=== PATIENT | male | born 1960 | race Caucasian/White ===

== ENCOUNTER 2017-11-21 13:25 | Observation (INO) | payer BC ==
[2017-11-21] MEDS ORDERED: Iopamidol 755 Mg/ML 100 ML Bottle IVPUSH ONE (13:31)
[2017-11-21] MEDS ORDERED: Temazepam 15 MG Cap PO PRN (17:39)
[2017-11-21] MEDS ORDERED: Sodium Chloride 0.9% 10 ML Syringe FLUSH PRN (17:39)
[2017-11-21] MEDS ORDERED: Magnesium Hydroxide 400 MG/5 ML Susp 30 ML Cup PO PRN (17:39)
[2017-11-21] MEDS ORDERED: Acetaminophen 325 MG Tab PO PRN (17:39)
--- NOTE | 2017-11-21 17:53 | PCM.HP ---
H&P History of Present Illness - General Date of Service: 11/21/17 Admit Problem/Dx: Admission Diagnosis/Problem Admission Diagnosis/Problem Pulmonary embolism Source of Information: Patient History Limitations: Reports: No Limitations - History of Present Illness Initial Comments - Free Text/Narative: aMria Guadalupe is a 56 year old male with PMH significant for hypertension, hyperlipidemia, atrial fibrillation, and BPH, who is admitted to the hospital for bilateral pulmonary emboli. He was seen in the clinic by Dr. Daley on Saturday for c/o swelling in BLE, shortness of breath, and fatigue, which had worsened over the past week. He reports he is 5 weeks status post left total hip arthroplasty with Dr. Sena. He reports he had US of BLE, which was negative for DVT. His D-Dimer was elevated to 3.751, so chest CTA was completed, revealing multiple bilateral pulmonary emboli. Pulmonary emboli noted to the lobar and segmental pulmonary arteries of the left lower lobe, right middle lobe , and right lower lobe. He does report a history of atrial fibrillation. 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 He reports he has only been on 325 mg aspirin since then. At present, he reports that he has noticed worsening fatigue due to shortness of breath over the last week or so. He denies any pain in his lower extremities currently, but does feel they are still slightly more swollen than usual. He denies any chest pain. He has no additional complaints and reports he otherwise feels well. Review of lab work from [facility] on Saturday11/18/2017 shows normal UA, CMP, Mg, vitamin B12, and folate. Pro-BNP was 461. Symptom Onset Date: 11/16/17 Duration of Symptoms: Reports: Getting Worse Associated Symptoms: Reports: Cough, Shortness of Breath, Other (fatigue, swelling in BLE). Denies: Confusion, Chest Pain, cough w sputum, Diaphoresis, Fever/Chills, Headaches, Loss of Appetite, Malaise, Nausea/Vomiting, Rash, Seizure, Syncope, Weakness - Related Data Allergies/Adverse Reactions: Allergies Allergy/AdvReac Type Severity Reaction Status Date / Time cefdinir [From Omnicef] Allergy Cannot Verified 11/21/17 16:23 Remember Penicillins Allergy Cannot Verified 11/21/17 16:23 Remember Home Medications: Home Meds Ascorbic Acid [Vitamin C] 50 mg PO DAILY 11/21/17 [History] Aspirin 325 mg PO DAILY 11/21/17 [History] Digoxin 250 mcg PO DAILY 11/21/17 [History] Diltiazem HCl [Cardizem LA] 360 mg PO DAILY 11/21/17 [History] Folic Acid 1 mg PO DAILY 11/21/17 [History] Furosemide [Lasix] 40 mg PO DAILY 11/21/17 [History] Losartan [Cozaar] 50 mg PO DAILY 11/21/17 [History] Magnesium Oxide 500 mg PO DAILY 11/21/17 [History] Mirabegron [Myrbetriq] 50 mg PO DAILY 11/21/17 [History] Red Yeast Rice 1 tab PO BEDTIME 11/21/17 [History] Ubidecarenone [Co Q-10] 50 mg PO BEDTIME 11/21/17 [History] Vitamin E 400 units PO DAILY 11/21/17 [History] atorvaSTATin [Lipitor] 80 mg PO BEDTIME 11/21/17 [History] Past Medical History Cardiovascular History: Reports: Afib, High Cholesterol, Hypertension. Denies: Blood Clots/VTE/DVT Genitourinary History: Reports: BPH Musculoskeletal History: Reports: Osteoarthritis Social & Family History - Family History Cardiac: Reports: Blood Clots/VTE/DVT (father) - Tobacco Use Smoking Status *Q: Never Smoker - Caffeine Use Caffeine Use: Reports: Coffee - Living Situation & Occupation Living situation: Reports: Occupation: Employed H&P Review of Systems - Review of Systems: Review Of Systems: ROS reveals no pertinent complaints other than HPI. General: Reports: Fatigue. Denies: Fever, Chills, Weakness Pulmonary: Reports: Shortness of Breath, Cough. Denies: Wheezing, Pleuritic Chest Pain, Sputum, Hemoptysis Cardiovascular: Reports: Dyspnea on Exertion, Edema. Denies: Chest Pain Gastrointestinal: Reports: No Symptoms Genitourinary: Reports: Frequency. Denies: Dysuria, Urgency Musculoskeletal: Reports: Joint Pain Skin: Reports: No Symptoms Psychiatric: Reports: No Symptoms Neurological: Reports: No Symptoms Hematologic/Lymphatic: Reports: No Symptoms Immunologic: Reports: No Symptoms Exam - Exam Exam: See Below - Vital Signs Vital Signs: Last Vital Signs Temp 97.3 F 11/21/17 16:21 Pulse 97 11/21/17 16:21 Resp 18 11/21/17 16:21 BP 131/80 11/21/17 16:21 Pulse Ox 98 11/21/17 16:21 Weight: 298 lb 12.8 oz - Exam Quality Assessment: DVT Prophylaxis General: Alert, Oriented, 4 Neck: Supple, Trachea Midline, 2 Lungs: Clear to Auscultation, Normal Respiratory Effort Cardiovascular: Regular Rate, Irregular Rhythm GI/Abdominal Exam: Normal Bowel Sounds, Soft, Non-Tender, No Organomegaly, No Distention, No Abnormal Bruit, No Mass, Pelvis Stable Back Exam: Normal Inspection, Full Range of Motion, NT Extremities: Normal Range of Motion, Non-Tender, Normal Capillary Refill, Pedal Edema (1+) Peripheral Pulses: 2+: Posterior Tibial (L), Posterior Tibial (R), Dorsalis Pedis (L), Dorsalis Pedis (R) Skin: Warm, Dry, Intact Neurological: Cranial Nerves Intact Neuro Extensive - Mental Status: Alert, Oriented x3, Normal Mood/Affect, Normal Cognition Psychiatric: Alert, Normal Affect, Normal Mood - Problem List (1) Pulmonary embolism, bilateral SNOMED Code(s): 33639748 ICD Code: I26.99 - OTHER PULMONARY EMBOLISM WITHOUT ACUTE COR PULMONALE Status: Acute Priority: High Current Visit: Yes (2) Status post total hip replacement, left SNOMED Code(s): 176302590471, 126611705889 ICD Code: Z96.642 - PRESENCE OF LEFT ARTIFICIAL HIP JOINT Status: Acute Current Visit: Yes (3) Hypertension SNOMED Code(s): 56462941 ICD Code: I10 - ESSENTIAL (PRIMARY) HYPERTENSION Status: Chronic Current Visit: Yes Qualifiers: Hypertension type: essential hypertension Qualified Code(s): I10 - Essential (primary) hypertension (4) Atrial fibrillation SNOMED Code(s): 09287255 ICD Code: I48.91 - UNSPECIFIED ATRIAL FIBRILLATION Status: Chronic Current Visit: Yes Qualifiers: Atrial fibrillation type: chronic Qualified Code(s): I48.2 - Chronic atrial fibrillation Problem List Initiated/Reviewed/Updated: Yes Orders Last 24hrs: Active Orders 24 hr Category Date Time Status Patient Status [ADT] Routine ADT 11/21/17 17:39 Ordered Cardiac Monitoring [RC] CONTINUOUS Care 11/21/17 17:40 Ordered Oxygen Therapy [RC] PRN Care 11/21/17 17:39 Ordered Pulse Oximetry [RC] PRN Care 11/21/17 17:40 Ordered Telemetry Monitoring [Cardiac Monitoring] [RC] 0800, Care 11/21/17 17:07 Active 2000 Up ad Camille [RC] ASDIRECTED Care 11/21/17 17:39 Ordered VTE/DVT Education [RC] PER UNIT ROUTINE Care 11/21/17 17:39 Ordered Vital Signs [RC] Q4H Care 11/21/17 17:39 Ordered Regular Diet [DIET] Diet 11/21/17 Dinner Ordered Ang Chest [CT] Routine Exams 11/21/17 14:30 Taken Echo Comp wo Cont [US] Routine Exams 11/21/17 13:30 Taken BMP [BASIC METABOLIC PANEL,BMP] [CHEM] Routine Lab 11/22/17 06:00 Ordered CBC WITH AUTO DIFF [HEME] AM Lab 11/22/17 05:11 Ordered Acetaminophen [Tylenol] Med 11/21/17 17:39 Ordered 650 mg PO Q4H PRN Digoxin [Lanoxin] Med 11/22/17 08:00 Ordered 250 mcg PO DAILY Diltiazem HCl [Cardizem LA] Med 11/22/17 08:00 Ordered 360 mg PO DAILY Enoxaparin [Lovenox] Med 11/21/17 18:00 Once 130 mg SUBCUT NOW ONE Furosemide [Lasix] Med 11/22/17 08:00 Ordered 40 mg PO DAILY Losartan [Cozaar] Med 11/22/17 08:00 Ordered 50 mg PO DAILY Magnesium Hydroxide [Milk of Magnesia] Med 11/21/17 17:39 Ordered 30 ml PO Q12H PRN Mirabegron [Myrbetriq] Med 11/22/17 08:00 Ordered 50 mg PO DAILY Sodium Chloride 0.9% [Saline Flush] Med 11/21/17 17:39 Ordered 10 ml FLUSH ASDIRECTED PRN Temazepam [Restoril] Med 11/21/17 17:39 Ordered 15 mg PO BEDTIME PRN atorvaSTATin [Lipitor] Med 11/21/17 20:00 Ordered 80 mg PO BEDTIME Saline Lock Insert [OM.PC] Routine Oth 11/21/17 17:39 Ordered Resuscitation Status Routine Resus Stat 11/21/17 17:39 Ordered EKG 12 Lead [EK] Routine Ther 11/21/17 17:39 Ordered Medication Orders Acetaminophen (Tylenol) 650 mg PO Q4H PRN PRN Reason: Pain (Mild 1-3)/fever Enoxaparin Sodium (Lovenox) 130 mg SUBCUT NOW ONE Stop: 11/21/17 18:01 Magnesium Hydroxide (Milk Of Magnesia) 30 ml PO Q12H PRN PRN Reason: Constipation Sodium Chloride (Saline Flush) 10 ml FLUSH ASDIRECTED PRN PRN Reason: Keep Vein Open Temazepam (Restoril) 15 mg PO BEDTIME PRN PRN Reason: Sleep Assessment/Plan Comment:: Long discussion had with patient and regarding options for treatment of pulmonary emboli and jail anticoagulation including Coumadin (bridging with Lovenox), Eliquis, Xarelto, etc. Ultimately, patient requests to be started on Xarelto. This was discussed with pharmacy re: cost. Discussed cost of jail therapy with patient and , who were agreeable and wished to proceed with initiating Xarelto. Xarelto not immediately available this evening. We will dose lovenox 130 mg tonight and initiate Xarelto in the morning. Patient will be on 15 mg BID x 21 days and then 20 mg daily indefinitely given bilateral PE and chronic atrial fibrillation. He had not been previously anticoagulated by his election judge due to low CHADs score. We will stop his full dose aspirin and start Xarelto. I will check kidney function in am, prior to initiating Xarelto. Creatinine 2017 was 1.0. Discussed benefits vs. risks of anticoagulation with patient. Patient voiced understanding and wishes to proceed with Xarelto. Will monitor heart rhythm overnight. Awaiting echocardiogram results. Discussed with patient that since we will not need to wait for INR to be therapeutic, we will admit to observation to monitor cardiac activity overnight and discharge home in 1-2 days, when echocardiogram results are available. Patient and voiced understanding and were agreeable with plan.
[2017-11-21] MEDS ORDERED: Enoxaparin 80 MG/0.8 ML Syringe SUBCUT ONE (18:00)
[2017-11-21] MEDS ORDERED: Enoxaparin 60 MG/0.6 ML Syringe SUBCUT ONE (18:00)
[2017-11-21] MEDS: ATORVASTATIN 80 MG PO SCH (19:36)
[2017-11-21] MEDS ORDERED: atorvaSTATin 20 MG Tab PO SCH (20:00)
[2017-11-22 07:28] LABS: CHLORIDE,CL 104 mEq/L (98-106); SODIUM,NA 138 mEq/L (136-145)
[2017-11-22] MEDS: LOSARTAN 50 MG PO SCH (07:55)
[2017-11-22] MEDS: Furosemide 40 MG Tab PO SCH (07:55)
[2017-11-22] MEDS: TAZTIA XT PO SCH (07:56)
[2017-11-22] MEDS ORDERED: Diltiazem 180 MG Cap.CD PO SCH (08:00)
[2017-11-22] MEDS ORDERED: Non-Formulary Medication 1 Each (Mirabegron [Myrbetriq] 50 MG) PO SCH (08:00)
[2017-11-22] MEDS ORDERED: Losartan 25 MG Tab PO SCH (08:00)
--- NOTE | 2017-11-22 08:49 | PCM.PN ---
- General Info Date of Service: 11/22/17 Admission Dx/Problem (Free Text): Admission Diagnosis/Problem Admission Diagnosis/Problem Pulmonary embolism Functional Status: Reports: Pain Controlled, Tolerating Diet, Ambulating, Urinating. Denies: New Symptoms - Review of Systems General: Reports: Fatigue. Denies: Fever, Weakness HEENT: Reports: No Symptoms Pulmonary: Reports: Cough. Denies: Shortness of Breath, Pleuritic Chest Pain, Sputum, Hemoptysis, Wheezing Cardiovascular: Reports: Dyspnea on Exertion, Orthopnea. Denies: Chest Pain, Edema (improved from yesterday) Gastrointestinal: Reports: No Symptoms. Denies: Abdominal Pain, Constipation, Decreased Appetite, Diarrhea, Nausea, Vomiting Genitourinary: Reports: No Symptoms. Denies: Dysuria, Frequency, Urgency Musculoskeletal: Reports: No Symptoms Skin: Reports: No Symptoms Neurological: Reports: No Symptoms. Denies: Confusion, Dizziness, Headache, Numbness, Tingling, Weakness Psychiatric: Reports: No Symptoms. Denies: Confusion, Depression, Anxiety - Patient Data Vitals - Most Recent: Last Vital Signs Temp 98.9 F 11/22/17 04:00 Pulse 93 11/22/17 04:00 Resp 18 11/22/17 04:00 BP 125/82 11/22/17 04:00 Pulse Ox 97 11/22/17 04:00 Weight - Most Recent: 298 lb 12.8 oz Lab Results Last 24 Hours: Laboratory Results - last 24 hr 11/22/17 11/22/17 Range/Units 07:05 07:05 WBC 9.6 (5.0-10.0) 10^3/uL RBC 4.81 (4.50-6.00) 10^6/uL Hgb 14.1 (14.0-18.0) g/dL Hct 43.5 (40.0-54.0) % MCV 90.4 (82.0-94.0) fL MCH 29.3 (27.0-32.0) pg MCHC 32.4 L (33.0-38.0) g/dL RDW Coeff of Brett 14.6 (11.0-15.0) % Plt Count 293 (150-400) 10^3/uL Neut % (Auto) 62.4 (35-85) % Lymph % (Auto) 23.0 (10-55) % [place] % (Auto) 9.5 (0-16) % Eos % (Auto) 4.6 (0-5) % Baso % (Auto) 0.5 (0-3) % Neut # (Auto) 5.99 (1.80-7.00) 10^3/uL Lymph # (Auto) 2.21 (1.00-4.80) 10^3/uL [place] # (Auto) 0.91 H (0.00-0.80) 10^3/uL Eos # (Auto) 0.44 (0.00-0.45) 10^3/uL Baso # (Auto) 0.05 10^3/uL Sodium 138 (136-145) mEq/L Potassium 4.1 (3.5-5.0) mEq/L Chloride 104 (98-106) mEq/L Carbon Dioxide 27 (21-32) mmol/L BUN 17 (7-18) mg/dL Creatinine 0.9 (0.7-1.3) mg/dL Est Cr Clr Drug Dosing 93.50 mL/min Estimated GFR (MDRD) > 60 (>=60) mL/min Glucose 107 H (75-99) mg/dL Calcium 8.7 (8.4-10.1) mg/dL Med Orders - Current: Current Medications Acetaminophen (Tylenol) 650 mg PO Q4H PRN PRN Reason: Pain (Mild 1-3)/fever Furosemide (Lasix) 40 mg PO DAILY [facility] Last Admin: 11/22/17 07:55 Dose: 40 mg Magnesium Hydroxide (Milk Of Magnesia) 30 ml PO Q12H PRN PRN Reason: Constipation Non-Formulary Medication (Mirabegron [Myrbetriq]) 50 mg PO DAILY [facility] Nf-Taztia Xt 360mg (Own Med) 0 each PO DAILY [facility] Last Admin: 11/22/17 07:56 Dose: 1 each Nf-Atorvastatin 80mg (Own Med) 0 each PO BEDTIME [facility] Last Admin: 11/21/17 19:36 Dose: 1 each Nf-Digoxin 250mcg (TabOwn Med) 0 each PO DAILY@1200 SHRUTHI Nf-Losartan 50mg Tab (Own Med) 0 each PO DAILY [facility] Last Admin: 11/22/17 07:55 Dose: 1 each Ptom Rivaroxaban (15 Mg Tab) 0 each PO Q12H SHRUTHI Sodium Chloride (Saline Flush) 10 ml FLUSH ASDIRECTED PRN PRN Reason: Keep Vein Open Temazepam (Restoril) 15 mg PO BEDTIME PRN PRN Reason: Sleep Last Admin: 11/21/17 21:23 Dose: 15 mg Discontinued Medications Enoxaparin Sodium (Lovenox) 60 mg SUBCUT NOW ONE Stop: 11/21/17 18:01 Last Admin: 11/21/17 18:30 Dose: 60 mg Enoxaparin Sodium (Lovenox) 70 mg SUBCUT NOW ONE Stop: 11/21/17 18:01 Last Admin: 11/21/17 18:30 Dose: 70 mg Iopamidol (Isovue-370 (76%)) 100 ml IVPUSH ONETIME ONE Stop: 11/21/17 13:32 Last Admin: 11/21/17 14:10 Dose: 100 ml - Exam Quality Assessment: No: Supplemental Oxygen General: Alert, Oriented, No Acute Distress Neck: Supple Lungs: Clear to Auscultation, Normal Respiratory Effort Cardiovascular: Regular Rate, Irregular Rhythm GI/Abdominal Exam: Normal Bowel Sounds, Soft, Non-Tender, No Organomegaly, No Distention, No Abnormal Bruit, No Mass, Pelvis Stable Back Exam: Normal Inspection, Full Range of Motion Extremities: Normal Inspection, Normal Range of Motion, Non-Tender, No Pedal Edema, Normal Capillary Refill Peripheral Pulses: 2+: Posterior Tibial (L), Posterior Tibial (R), Dorsalis Pedis (L), Dorsalis Pedis (R) Skin: Warm, Dry, Intact Neurological: No New Focal Deficit Psy/Mental Status: Alert, Normal Affect, Normal Mood - Problem List & Annotations (1) Pulmonary embolism, bilateral SNOMED Code(s): 86481646 Code(s): I26.99 - OTHER PULMONARY EMBOLISM WITHOUT ACUTE COR PULMONALE Status: Acute Priority: High Current Visit: Yes (2) Status post total hip replacement, left SNOMED Code(s): 893980351743, 424100859126 Code(s): Z96.642 - PRESENCE OF LEFT ARTIFICIAL HIP JOINT Status: Acute Current Visit: Yes (3) Hypertension SNOMED Code(s): 76695965 Code(s): I10 - ESSENTIAL (PRIMARY) HYPERTENSION Status: Chronic Current Visit: Yes Qualifiers: Hypertension type: essential hypertension Qualified Code(s): I10 - Essential (primary) hypertension (4) Atrial fibrillation SNOMED Code(s): 81020558 Code(s): I48.91 - UNSPECIFIED ATRIAL FIBRILLATION Status: Chronic Current Visit: Yes Qualifiers: Atrial fibrillation type: chronic Qualified Code(s): I48.2 - Chronic atrial fibrillation - Problem List Review Problem List Initiated/Reviewed/Updated: Yes - My Orders Last 24 Hours: My Active Orders 11/21/17 17:39 Patient Status [ADT] Routine Oxygen Therapy [RC] .PRN Up ad Camille [RC] .PRN Vital Signs [RC] 0000,0400,0800,1200,1600,2000 Acetaminophen [Tylenol] 650 mg PO Q4H PRN Magnesium Hydroxide [Milk of Magnesia] 30 ml PO Q12H PRN Sodium Chloride 0.9% [Saline Flush] 10 ml FLUSH ASDIRECTED PRN Temazepam [Restoril] 15 mg PO BEDTIME PRN Saline Lock Insert [OM.PC] Routine Resuscitation Status Routine 11/21/17 17:40 Pulse Oximetry [RC] .PRN 11/21/17 18:25 NICOLÁS Hose [Antiembolic Hose] [OM.PC] Routine 11/21/17 20:00 Non-Formulary Medication [NF Drug] 0 each PO BEDTIME 11/21/17 Dinner Regular Diet [DIET] 11/22/17 07:05 FACTOR V LEIDEN MUTATION [REF] Routine 11/22/17 08:00 Furosemide [Lasix] 40 mg PO DAILY Mirabegron [Myrbetriq] 50 mg PO DAILY Non-Formulary Medication [NF Drug] 0 each PO DAILY Non-Formulary Medication [NF Drug] 0 each PO DAILY 11/22/17 08:45 Non-Formulary Medication [NF Drug] See Dose Instructions PO Q12H 11/22/17 12:00 Non-Formulary Medication [NF Drug] 0 each PO DAILY@1200 - Plan Plan:: 11/21/2017 Long discussion had with patient and regarding options for treatment of pulmonary emboli and skilled nursing anticoagulation including Coumadin (bridging with Lovenox), Eliquis, Xarelto, etc. Ultimately, patient requests to be started on Xarelto. This was discussed with pharmacy re: cost. Discussed cost of skilled nursing therapy with patient and , who were agreeable and wished to proceed with initiating Xarelto. Xarelto not immediately available this evening. We will dose lovenox 130 mg tonight and initiate Xarelto in the morning. Patient will be on 15 mg BID x 21 days and then 20 mg daily indefinitely given bilateral PE and chronic atrial fibrillation. 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 We will stop his full dose aspirin and start Xarelto. I will check kidney function in am, prior to initiating Xarelto. Creatinine 2017 was 1.0. Discussed benefits vs. risks of anticoagulation with patient. Patient voiced understanding and wishes to proceed with Xarelto. Will monitor heart rhythm overnight. Awaiting echocardiogram results. Discussed with patient that since we will not need to wait for INR to be therapeutic, we will admit to observation to monitor cardiac activity overnight and discharge home in 1-2 days, when echocardiogram results are available. Patient and voiced understanding and were agreeable with plan. 11/22/2017 Start Xarelto this morning. Patient reports he does not have shortness of breath at rest. Has not been up walking much, other than to the bathroom and back to bed. He does continue to have exertional shortness of breath. Echocardiogram shows EF of 55-60%. No concerning findings. Cardiac monitoring has showed a controlled a fib with rate in the 90s since admit. Patient continues to deny any chest pain. Cough is improving. Swelling to BLE has also improved, only trace edema noted. Lab work all stable. We will keep one more night to monitor oxygen sats with activity and heart rhythm. Encourage more activity today with spot O2 checks. Anticipate discharge home in the morning. Patient verbalized understanding. This was discussed with Dr. Brambila, who was agreeable with plan.
[2017-11-22] MEDS: RIVAROXABAN 15 MG PO SCH ×2 (09:14→20:56)
[2017-11-22] MEDS: Folic Acid 1 MG Tab PO SCH (11:02)
[2017-11-22] MEDS ORDERED: DIGOXIN 250 MCG PO SCH (12:00)
[2017-11-22] MEDS ORDERED: Digoxin 250 MCG Tab PO SCH (12:00)
[2017-11-22] MEDS: ATORVASTATIN 80 MG PO SCH (20:56)
[2017-11-23] MEDS: LOSARTAN 50 MG PO SCH (07:59)
[2017-11-23] MEDS: Furosemide 40 MG Tab PO SCH (08:00)
[2017-11-23] MEDS: TAZTIA XT PO SCH (08:01)
[2017-11-23] MEDS: Folic Acid 1 MG Tab PO SCH (08:01)
[2017-11-23] MEDS: RIVAROXABAN 15 MG PO SCH ×2 (08:02→09:16)
--- NOTE | 2017-11-23 09:17 | PCM.DCSUM1 ---
Discharge Summary - Hospital Course HPI Initial Comments: Maria Guadalupe is a 56 year old male who was admitted to the hospital 11/21/2017 for bilateral pulmonary emboli. He was seen in the clinic by Dr. Daley on Saturday for c/o bilateral lower extremity edema, shortness of breath, and fatigue. He is status post 5 weeks L) PATRIA with Dr. Sena . He had a US of BLE which was negative for DVT. Had an elevated D-dimer and subsequent chest CTA revealed multiple bilateral pulmonary emboli of the lobar and segmental pulmonary arteries of left lower lobe, right middle lobe, and right lower lobe. He also has history of atrial fibrillation. Has not been previously anticoagulated. He reports about 6 years ago he was on Coumadin, but this was stopped. He wished not to be started on Coumadin. Xarelto was started. Patient initially received 130 mg Lovenox on evening of admission, Xarelto was then started 11/22/2017. Patient had an uneventful hospital stay. EKG upon admit revealed atrial fibrillation. Telemetry throughout hospitalization was a controlled a-fib. Patient's exertional shortness of breath and swelling to his LE improved throughout stay. On day of discharge, patient denied any complaints. He had been up ambulating in halls without significant SOB or desaturation of O2 sats. He was anxious to discharge home. Patient will be discharged home on Xarelto 15 mg BID x 21 days, then reduced to 20 mg daily following that. He is advised to follow up with his PCP in one week for recheck, sooner if needed. Reduce lasix dose to as needed and stop aspirin. Patient and voiced understanding. Patient discharged home in satisfactory condition. - Discharge Data Discharge Date: 11/23/17 Discharge Disposition: Home, Self-Care 01 Condition: Good - Discharge Diagnosis/Problem(s) (1) Pulmonary embolism, bilateral SNOMED Code(s): 50658833 ICD Code: I26.99 - OTHER PULMONARY EMBOLISM WITHOUT ACUTE COR PULMONALE Status: Acute Priority: High (2) Status post total hip replacement, left SNOMED Code(s): 398923756388, 442912913082 ICD Code: Z96.642 - PRESENCE OF LEFT ARTIFICIAL HIP JOINT Status: Acute (3) Hypertension SNOMED Code(s): 87556018 ICD Code: I10 - ESSENTIAL (PRIMARY) HYPERTENSION Status: Chronic Qualifiers: Hypertension type: essential hypertension Qualified Code(s): I10 - Essential (primary) hypertension (4) Atrial fibrillation SNOMED Code(s): 32007319 ICD Code: I48.91 - UNSPECIFIED ATRIAL FIBRILLATION Status: Chronic Qualifiers: Atrial fibrillation type: chronic Qualified Code(s): I48.2 - Chronic atrial fibrillation - Patient Instructions Diet: Usual Diet as Tolerated Activity: As Tolerated, Cough & Deep Breathe Notify Provider of: Fever, Increased Pain - Discharge Plan *PRESCRIPTION DRUG MONITORING PROGRAM REVIEWED*: Not Applicable *COPY OF PRESCRIPTION DRUG MONITORING REPORT IN PATIENT JONO: Not Applicable Prescriptions/Med Rec: Rivaroxaban [Xarelto] 15 mg PO BID #39 tablet Home Medications: Home Meds Ascorbic Acid [Vitamin C] 50 mg PO DAILY 11/21/17 [History] Digoxin 250 mcg PO DAILY 11/21/17 [History] Diltiazem HCl [Cardizem LA] 360 mg PO DAILY 11/21/17 [History] Folic Acid 1 mg PO DAILY 11/21/17 [History] Losartan [Cozaar] 50 mg PO DAILY 11/21/17 [History] Magnesium Oxide 500 mg PO DAILY 11/21/17 [History] Mirabegron [Myrbetriq] 50 mg PO DAILY 11/21/17 [History] Red Yeast Rice 1 tab PO BEDTIME 11/21/17 [History] Ubidecarenone [Co Q-10] 50 mg PO BEDTIME 11/21/17 [History] Vitamin E 400 units PO DAILY 11/21/17 [History] atorvaSTATin [Lipitor] 80 mg PO BEDTIME 11/21/17 [History] Furosemide [Lasix] 40 mg PO DAILY PRN #0 11/23/17 [Rx] Rivaroxaban [Xarelto] 15 mg PO BID #39 tablet 11/23/17 [Rx] Patient Handouts: Pulmonary Embolism, Atrial Fibrillation, [id number] Referrals: Talisha Andujar NP [ED Midlevel Provider] - - General Info Date of Service: 11/23/17 Admission Dx/Problem (Free Text: Admission Diagnosis/Problem Admission Diagnosis/Problem Pulmonary embolism Subjective Update: Patient reports he is feeling better today. Denies any shortness of breath at rest. Has been up ambulating in halls. Edema has improved in BLE. Denies any pain. Functional Status: Reports: Pain Controlled, Tolerating Diet, Ambulating, Urinating. Denies: New Symptoms - Review of Systems General: Reports: No Symptoms. Denies: Fever, Weakness, Fatigue, Chills HEENT: Reports: No Symptoms Pulmonary: Reports: No Symptoms. Denies: Shortness of Breath, Pleuritic Chest Pain, Cough, Sputum, Hemoptysis, Wheezing Cardiovascular: Reports: Dyspnea on Exertion, Edema. Denies: Chest Pain Gastrointestinal: Reports: No Symptoms Genitourinary: Reports: No Symptoms Musculoskeletal: Reports: No Symptoms Skin: Reports: No Symptoms Neurological: Reports: No Symptoms Psychiatric: Reports: No Symptoms - Patient Data Vitals - Most Recent: Last Vital Signs Temp 99.3 F 11/23/17 00:00 Pulse 85 11/23/17 00:00 Resp 16 11/23/17 00:00 BP 137/86 11/23/17 00:00 Pulse Ox 99 11/23/17 00:00 Weight - Most Recent: 298 lb 12.8 oz Med Orders - Current: Current Medications Acetaminophen (Tylenol) 650 mg PO Q4H PRN PRN Reason: Pain (Mild 1-3)/fever Folic Acid (Folic Acid) 1 mg PO DAILY [facility] Last Admin: 11/23/17 08:01 Dose: 1 mg Furosemide (Lasix) 40 mg PO DAILY [facility] Last Admin: 11/23/17 08:00 Dose: 40 mg Magnesium Hydroxide (Milk Of Magnesia) 30 ml PO Q12H PRN PRN Reason: Constipation Nf-Taztia Xt 360mg (Own Med) 0 each PO DAILY [facility] Last Admin: 11/23/17 08:01 Dose: 1 each Nf-Atorvastatin 80mg (Own Med) 0 each PO BEDTIME [facility] Last Admin: 11/22/17 20:56 Dose: 1 each Nf-Digoxin 250mcg (TabOwn Med) 0 each PO DAILY@1200 [facility] Last Admin: 11/22/17 11:02 Dose: 1 each Nf-Losartan 50mg Tab (Own Med) 0 each PO DAILY [facility] Last Admin: 11/23/17 07:59 Dose: 1 each Ptom Rivaroxaban (15 Mg Tab) 0 each PO Q12H [facility] Last Admin: 11/23/17 09:16 Dose: 1 each Sodium Chloride (Saline Flush) 10 ml FLUSH ASDIRECTED PRN PRN Reason: Keep Vein Open Temazepam (Restoril) 15 mg PO BEDTIME PRN PRN Reason: Sleep Last Admin: 11/21/17 21:23 Dose: 15 mg Discontinued Medications Enoxaparin Sodium (Lovenox) 60 mg SUBCUT NOW ONE Stop: 11/21/17 18:01 Last Admin: 11/21/17 18:30 Dose: 60 mg Enoxaparin Sodium (Lovenox) 70 mg SUBCUT NOW ONE Stop: 11/21/17 18:01 Last Admin: 11/21/17 18:30 Dose: 70 mg Iopamidol (Isovue-370 (76%)) 100 ml IVPUSH ONETIME ONE Stop: 11/21/17 13:32 Last Admin: 11/21/17 14:10 Dose: 100 ml Non-Formulary Medication (Mirabegron [Myrbetriq]) 50 mg PO DAILY SHRUTHI Last Admin: 11/22/17 11:48 Dose: Not Given - Exam Quality Assessment: Reports: DVT Prophylaxis General: Reports: Alert, Oriented Neck: Reports: Supple Lungs: Reports: Clear to Auscultation, Normal Respiratory Effort Cardiovascular: Reports: Regular Rate, Irregular Rhythm GI/Abdominal Exam: Normal Bowel Sounds, Soft, Non-Tender, No Organomegaly, No Distention, No Abnormal Bruit, No Mass, Pelvis Stable Extremities: Normal Inspection, Normal Range of Motion, Non-Tender, Normal Capillary Refill, Pedal Edema (trace) Skin: Reports: Warm, Dry, Intact Neurological: Reports: No New Focal Deficit
== END 2017-11-23 09:45 | disposition home or self-care (01) ==
LOC: CC.US 13:25 → UNDOADMOB 16:11 → INTOOBSV 16:11 → CC.MS 16:11
PROVIDERS: ADMIT General Practice; ATTEND Family Medicine
DX: I26.99 Other pulmonary embolism without acute cor pulmonale (principal); I48.2 Chronic atrial fibrillation; I10 Essential (primary) hypertension; E78.5 Hyperlipidemia, unspecified; Z79.82 Long term (current) use of aspirin; Z79.899 Other long term (current) drug therapy; Z88.0 Allergy status to penicillin; Z88.1 Allergy status to other antibiotic agents; Z96.642 Presence of left artificial hip joint
CPT/HCPCS: 36415; 71275; 80048; 81241; 85025; 93005; 93306; A9270; J1650; Q9967; 96372; G0378

== ENCOUNTER 2020-02-03 05:18 | Emergency (ER) | payer BC ==
[2020-02-03] MEDS: Diltiazem 25 MG/5 ML SDV IVPUSH ONE ×2 (06:15)
[2020-02-03] MEDS ORDERED: Diltiazem 100 MG in Sodium Chloride 0.9% 100 ML IV SCH (06:15)
[2020-02-03] MEDS: Diltiazem 100 MG in Sodium Chloride 0.9% 100 ML IV SCH (06:26)
[2020-02-03] MEDS: Sodium Chloride 0.9% 1,000 ML IV SCH (06:26)
[2020-02-03 06:30] LABS: CHLORIDE,CL 98 mEq/L (98-106); SODIUM,NA 134 mEq/L (136-145)
[2020-02-03] MEDS: Vancomycin/Water for INJ (PEG) 2 GM in Premix Bag 1 BAG IV ONE (06:59)
--- NOTE | 2020-02-03 07:04 | EDM.PDOC ---
ED HPI GENERAL MEDICAL PROBLEM - General Chief Complaint: General Stated Complaint: increased SOB, covid positive Time Seen by Provider: 02/03/20 05:45 Source of Information: Reports: Patient History Limitations: Reports: No Limitations, Respiratory Distress - History of Present Illness INITIAL COMMENTS - FREE TEXT/NARRATIVE: Maria Guadalupe is a 59 yo male who presented to the ED with concerns of increased shortness of breath. States he is positive COVID and started having difficulty with breathing last night around 2100hrs. States wasn't able to sleep d/t a persistent cough. Did try using DuoNebs at home but felt it made it worse and his heart started to race. Has known history of atrial fibrillation. Currently is on Xarelto, Cardizem and Metoprolol for atrial fibrillation but unknown dosage. States he was diagnosed with COVID last week Saturday and was started on Dexamethasone by his primary provider, Dr. Enrique Daley, in [place], [place]. States he gradually got worse thru out the week and was seen by Dr. Daley on Saturday of this week. He states he was started on IV antibiotics but unsure what it was exactly. Had laboratory work and chest x-ray at that time. Has IV in right wrist from outside facility. - Related Data Allergies Allergy/AdvReac Type Severity Reaction Status Date / Time cefdinir [From Omnicef] Allergy Cannot Verified 02/03/20 07:11 Remember Penicillins Allergy Cannot Verified 02/03/20 07:11 Remember Home Meds: Home Meds Ascorbic Acid [Vitamin C] 50 mg PO DAILY 11/21/17 [History] Folic Acid 1 mg PO DAILY 11/21/17 [History] Losartan [Cozaar] 50 mg PO DAILY 11/21/17 [History] Magnesium Oxide 500 mg PO DAILY 11/21/17 [History] Mirabegron [Myrbetriq] 50 mg PO DAILY 11/21/17 [History] Red Yeast Rice 1 tab PO BEDTIME 11/21/17 [History] Ubidecarenone [Co Q-10] 50 mg PO BEDTIME 11/21/17 [History] Vitamin E 400 units PO DAILY 11/21/17 [History] atorvaSTATin [Lipitor] 80 mg PO BEDTIME 11/21/17 [History] dilTIAZem HCL [Cardizem LA] 360 mg PO DAILY 11/21/17 [History] Furosemide [Lasix] 40 mg PO DAILY PRN #0 11/23/17 [Rx] Apixaban [Eliquis] 5 mg PO BID 02/03/20 [History] Evolocumab [Repatha Syringe] 1 syringe IM WEEKLY 02/03/20 [History] Metoprolol Succinate 25 mg PO DAILY 02/03/20 [History] Past Medical History Cardiovascular History: Reports: Afib, High Cholesterol, Hypertension. Denies: Blood Clots/VTE/DVT Respiratory History: Reports: PE Genitourinary History: Reports: BPH Musculoskeletal History: Reports: Osteoarthritis - Past Surgical History GI Surgical History: Reports: Hernia, Abdominal Musculoskeletal Surgical History: Reports: Hip Replacement, Other (See Below) Other Musculoskeletal Surgeries/Procedures:: bilat hip replacements, pin and plate to L) hand Social & Family History - Family History Cardiac: Reports: Blood Clots/VTE/DVT (father) - Tobacco Use Tobacco Use Status *Q: Never Tobacco User - Caffeine Use Caffeine Use: Reports: Coffee - Recreational Drug Use Recreational Drug Use: No - Living Situation & Occupation Living situation: Reports: Occupation: Employed ED ROS GENERAL - Review of Systems Review Of Systems: See Below Constitutional: Reports: Fatigue. Denies: Fever, Chills HEENT: Reports: Throat Pain (persistent cough) Respiratory: Reports: Shortness of Breath, Wheezing, Cough Cardiovascular: Reports: Palpitations. Denies: Edema, Lightheadedness, Syncope GI/Abdominal: Reports: No Symptoms : Reports: No Symptoms Musculoskeletal: Reports: No Symptoms Skin: Reports: No Symptoms ED EXAM, GENERAL - Physical Exam Exam: See Below Exam Limited By: No Limitations General Appearance: Moderate Distress Ears: Normal External Exam, Hearing Grossly Normal Nose: Normal Inspection, No Blood Throat/Mouth: Normal Voice, No Airway Compromise Head: Atraumatic, Normocephalic Neck: Normal Inspection, Supple. No: Lymphadenopathy (L), Lymphadenopathy (R) Respiratory/Chest: Respiratory Distress, Decreased Breath Sounds, Crackles (thr ough out right and left lobs), Accessory Muscle Use, Other (persistent dry, harsh cough). No: Stridor Cardiovascular: No Edema, No Murmur, Irregularly Irregular GI/Abdominal: Normal Bowel Sounds, Soft, Non-Tender, No Distention, Other (morbid obesity) Neurological: Alert, Oriented, Normal Cognition Psychiatric: Anxious Skin Exam: Warm, Dry, Intact, Normal Color, No Rash #1 Interpretation EKG Date: 02/03/20 Time: 05:35 Rhythm: A-Fib (RVR) Comparison: NA - No Prior EKG Course - Vital Signs Last Recorded V/S: Last Vital Signs Temp 99.3 F 02/03/20 06:44 Pulse 154 H 02/03/20 06:44 Resp 43 H 02/03/20 06:44 BP 134/88 02/03/20 06:44 Pulse Ox 84 L 02/03/20 06:44 - Orders/Labs/Meds Orders: Active Orders 24 hr Category Date Time Status Chest 1V Frontal [CR] Routine Exams 02/03/20 Taken Labs: Laboratory Tests 02/03/20 02/03/20 02/03/20 Range/Units 06:01 06:01 06:01 WBC 22.9 H* (5.0-10.0) 10^3/uL RBC 5.97 (4.50-6.00) 10^6/uL Hgb 17.7 (14.0-18.0) g/dL Hct 51.5 (40.0-54.0) % MCV 86.3 (82.0-94.0) fL MCH 29.6 (27.0-32.0) pg MCHC 34.4 (33.0-38.0) g/dL RDW Coeff of Brett 16.4 H (11.0-15.0) % Plt Count 361 (150-400) 10^3/uL Neut % (Auto) 95.0 H (35-85) % Lymph % (Auto) 2.8 L (10-55) % Dawes % (Auto) 2.1 (0-16) % Eos % (Auto) 0 (0-5) % Baso % (Auto) 0.1 (0-3) % Neut # (Auto) 21.73 H (1.80-7.00) 10^3/uL Lymph # (Auto) 0.65 L (1.00-4.80) 10^3/uL Dawes # (Auto) 0.48 (0.00-0.80) 10^3/uL Eos # (Auto) 0.00 (0.00-0.45) 10^3/uL Baso # (Auto) 0.02 10^3/uL D-Dimer, Quantitative 0.99 H (0.00-0.50) Sodium 134 L (136-145) mEq/L Potassium 3.9 (3.5-5.0) mEq/L Chloride 98 (98-106) mEq/L Carbon Dioxide 24 (21-32) mmol/L BUN 25 H (7-18) mg/dL Creatinine 1.2 (0.7-1.3) mg/dL Est Cr Clr Drug Dosing TNP Estimated GFR (MDRD) > 60 (>=60) mL/min Glucose 151 H D (75-99) mg/dL Lactic Acid (0.4-2.0) mmol/L Calcium 8.5 (8.4-10.1) mg/dL Total Bilirubin 0.4 (0.0-1.0) mg/dL AST 35 (15-37) U/L ALT 58 (12-78) U/L Alkaline Phosphatase 84 (46-116) U/L Creatine Kinase 164 (35-232) U/L Troponin I 0.017 (0.00-0.06) ng/mL C-Reactive Protein 15.3 H (0.2-0.8) mg/dL Total Protein 7.1 (6.4-8.2) g/dL Albumin 2.5 L (3.4-5.0) g/dL 02/03/20 Range/Units 06:01 WBC (5.0-10.0) 10^3/uL RBC (4.50-6.00) 10^6/uL Hgb (14.0-18.0) g/dL Hct (40.0-54.0) % MCV (82.0-94.0) fL MCH (27.0-32.0) pg MCHC (33.0-38.0) g/dL RDW Coeff of Brett (11.0-15.0) % Plt Count (150-400) 10^3/uL Neut % (Auto) (35-85) % Lymph % (Auto) (10-55) % Dawes % (Auto) (0-16) % Eos % (Auto) (0-5) % Baso % (Auto) (0-3) % Neut # (Auto) (1.80-7.00) 10^3/uL Lymph # (Auto) (1.00-4.80) 10^3/uL Dawes # (Auto) (0.00-0.80) 10^3/uL Eos # (Auto) (0.00-0.45) 10^3/uL Baso # (Auto) 10^3/uL D-Dimer, Quantitative (0.00-0.50) Sodium (136-145) mEq/L Potassium (3.5-5.0) mEq/L Chloride (98-106) mEq/L Carbon Dioxide (21-32) mmol/L BUN (7-18) mg/dL Creatinine (0.7-1.3) mg/dL Est Cr Clr Drug Dosing Estimated GFR (MDRD) (>=60) mL/min Glucose (75-99) mg/dL Lactic Acid 3.2 H (0.4-2.0) mmol/L Calcium (8.4-10.1) mg/dL Total Bilirubin (0.0-1.0) mg/dL AST (15-37) U/L ALT (12-78) U/L Alkaline Phosphatase (46-116) U/L Creatine Kinase (35-232) U/L Troponin I (0.00-0.06) ng/mL C-Reactive Protein (0.2-0.8) mg/dL Total Protein (6.4-8.2) g/dL Albumin (3.4-5.0) g/dL Meds: Medications Discontinued Medications Generic Name Dose Route Start Last Admin Trade Name Freq PRN Reason Stop Dose Admin Diltiazem HCl 10 mg 02/03/20 05:50 02/03/20 06:15 Diltiazem IVPUSH 02/03/20 05:51 Not Given ONETIME ONE Diltiazem HCl 25 mg 02/03/20 06:00 02/03/20 06:15 Diltiazem IVPUSH 02/03/20 06:01 25 mg ONETIME ONE Administration Diltiazem HCl 100 mg/ Sodium 100 mls @ 5 mls/hr 02/03/20 06:15 02/03/20 06:26 Chloride IV 5 mg/hr TITRATE SHRUTHI 5 mls/hr Administration Protocol 5 MG/HR Diltiazem HCl 100 mg/ Sodium 100 mls @ 5 mls/hr 02/03/20 06:15 Chloride IV TITRATE SHRUTHI Protocol 5 MG/HR Sodium Chloride 1,000 mls @ 125 mls/hr 02/03/20 06:15 02/03/20 06:26 Normal Saline IV 125 mls/hr ASDIRECTED SHRUTHI Administration Vancomycin HCl 2 gm/ Premix 400 mls @ 200 mls/hr 02/03/20 06:45 02/03/20 06:59 IV 02/03/20 08:44 200 mls/hr STAT ONE Administration Departure - Departure Time of Disposition: 07:55 Disposition: DC/Tfer to [facility] 02 Clinical Impression: Acute respiratory distress syndrome (ARDS) due to 2019 novel coronavirus, Atr ial fibrillation with RVR - Discharge Information Referrals: Enrique Daley MD [Primary Care Provider] - Forms: ED Department Discharge Sepsis Event Note (ED) - Evaluation Sepsis Screening Result: No Definite Risk - Focused Exam Vital Signs: Vital Signs Temp Pulse Resp BP Pulse Ox 02/03/20 06:44 99.3 F 154 H 43 H 134/88 84 L 02/03/20 06:17 99.3 F 139 H 48 H 122/97 H 88 L 02/03/20 05:50 98.8 F 84 52 H 148/90 H 84 L 02/03/20 05:20 97.8 F 100 32 H 152/104 H 70 L - Problem List & Annotations (1) Acute respiratory distress syndrome (ARDS) due to 2019 novel coronavirus SNOMED Code(s): 483255730498801900 Code(s): U07.1 - COVID-19; J80 - ACUTE RESPIRATORY DISTRESS SYNDROME Stat us: Acute (2) Pneumonia due to 2019 novel coronavirus SNOMED Code(s): 300426301100791355 Code(s): U07.1 - COVID-19; J12.89 - OTHER VIRAL PNEUMONIA Status: Acute (3) Atrial fibrillation with RVR SNOMED Code(s): 933894029675564 Code(s): I48.91 - UNSPECIFIED ATRIAL FIBRILLATION Status: Acute - My Orders Last 24 Hours: My Active Orders 02/03/20 Chest 1V Frontal [CR] Routine - Assessment/Plan Last 24 Hours: My Active Orders 02/03/20 Chest 1V Frontal [CR] Routine Plan: Upon arrival to ED, Les had an oxygen saturation of low 80's. Immediately patient was placed on nonrebreather and oxygen sats have been maintaining in the mid to high 80's. EKG obtained which did show A. fib with RVR at 176bpm. Consulted with Elizabeth which proceeded to give 25mg of Cardizem IV bolus. Heart rate had slightly decreased to 140's. Elected to start Cardizem drip and titrate, currently on 10mg/hr. Chest x-ray obtained and showed bilateral diffuse infiltrates. [place] [id number] with an elevated CRP and Lactic Acid. E-marv assisted with transfer. Consulted with Dr. Yu, saxophone assembler, at [facility] who kindly accepted transfer. Life flight paged and currently en route with an ETA of 0754. Dr. Yu advised starting IV antibiotics and 2gm of Vancomycin given. Recommended Cefepime as well but was not given secondary to Cephalosporin allergy. Advised intubation prior to flight. Patient's oxygen saturation improved to 87-88% per nonrebreather. Closely monitoring and will refrain intubation until life flight arrival. Upon life flight arrival, Les's oxygen saturation did remain in the 88-90% range. Discussed intubation with patient and elected to try bipap, which he tolerated well. Discussed ris and benefits of transfer with Dejuan. Risks of transfer included worsening of condition, respiratory failure, aircraft crash and . Benefits of transfer included higher level of care facility, critical care monitoring and specialty interventions. Risks of non-transfer included lac of specialized care/treatment/intervention, worsening of condition, . Benefits of non- transfer included staying in familiar environment and close to home. Les verbalized understanding and in agreement with transfer. I did call his and daughter and provided update. Both verbalized understanding. Please see nurses notes for updated documented vitals.
== END 2020-02-03 08:23 ==
LOC: SUPCPDRO 05:18 → CC.ED 05:18
DX: U07.1 COVID-19 (principal); J80 Acute respiratory distress syndrome; I48.91 Unspecified atrial fibrillation; E78.00 Pure hypercholesterolemia, unspecified; I10 Essential (primary) hypertension; Z88.1 Allergy status to other antibiotic agents; Z88.0 Allergy status to penicillin; Z79.01 Long term (current) use of anticoagulants; Z86.711 Personal history of pulmonary embolism; Z79.899 Other long term (current) drug therapy
CPT/HCPCS: 36415; 71045; 80053; 82550; 83605; 84484; 85025; 85379; 86140; 96365; 96366; 96368; 99285; J3370; J3490; J7030; J7050

== ENCOUNTER 2021-04-01 16:34 | Emergency (ER) | payer BC ==
--- NOTE | 2021-04-03 14:12 | EDM.PDOC ---
ED HPI GENERAL MEDICAL PROBLEM - General Chief Complaint: General Stated Complaint: SOB Time Seen by Provider: 04/01/21 16:46 Source of Information: Reports: Patient History Limitations: Reports: No Limitations - History of Present Illness INITIAL COMMENTS - FREE TEXT/NARRATIVE: Pleasant 60 year old male presents with cough and some shortness of breath. He also has a sore throat. He states his was concerned based on his symptoms, especially because of what he went through last year when he had COVID. 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 (see below) (no treatments prior to arrival ) Chest Pain Score (Numeric/FACES): 2 Throat Pain Score (Numeric/FACES): 2 - Related Data Allergies Allergy/AdvReac Type Severity Reaction Status Date / Time cefdinir [From Omnicef] Allergy Cannot Verified 04/01/21 18:25 Remember Penicillins Allergy Cannot Verified 04/01/21 18:25 Remember Home Meds: Home Meds Ascorbic Acid [Vitamin C] 50 mg PO DAILY 11/21/17 [History] Folic Acid 1 mg PO DAILY 11/21/17 [History] Losartan [Cozaar] 50 mg PO DAILY 11/21/17 [History] Magnesium Oxide 500 mg PO DAILY 11/21/17 [History] Mirabegron [Myrbetriq] 50 mg PO DAILY 11/21/17 [History] Red Yeast Rice 1 tab PO BEDTIME 11/21/17 [History] Ubidecarenone [Co Q-10] 50 mg PO BEDTIME 11/21/17 [History] Vitamin E 400 units PO DAILY 11/21/17 [History] atorvaSTATin [Lipitor] 80 mg PO BEDTIME 11/21/17 [History] dilTIAZem HCL [Cardizem LA] 360 mg PO DAILY 11/21/17 [History] Furosemide [Lasix] 40 mg PO DAILY PRN #0 11/23/17 [Rx] Apixaban [Eliquis] 5 mg PO BID 02/03/20 [History] Evolocumab [Repatha Syringe] 1 syringe IM WEEKLY 02/03/20 [History] Metoprolol Succinate 25 mg PO DAILY 02/03/20 [History] Spironolactone [Aldactone] 50 mg PO DAILY 04/01/21 [History] Torsemide 20 mg PO DAILY 04/01/21 [History] Past Medical History HEENT History: Reports: None Cardiovascular History: Reports: Afib, High Cholesterol, Hypertension Respiratory History: Reports: PE Other Respiratory History: Frequent coughing since last . Genitourinary History: Reports: BPH Musculoskeletal History: Reports: Osteoarthritis - Past Surgical History GI Surgical History: Reports: Hernia, Abdominal Musculoskeletal Surgical History: Reports: Hip Replacement, Other (See Below) Other Musculoskeletal Surgeries/Procedures:: bilat hip replacements, pin and plate to L) hand Social & Family History - Family History Cardiac: Reports: Blood Clots/VTE/DVT - Tobacco Use Tobacco Use Status *Q: Never Tobacco User Second Hand Smoke Exposure: No - Caffeine Use Caffeine Use: Reports: Coffee - Recreational Drug Use Recreational Drug Use: No - Living Situation & Occupation Living situation: Reports: Occupation: Employed ED ROS GENERAL - Review of Systems Review Of Systems: See Below Constitutional: Reports: Fever, Chills, Night Sweats HEENT: Reports: Throat Pain Respiratory: Reports: Shortness of Breath, Cough Cardiovascular: Reports: No Symptoms Endocrine: Reports: No Symptoms GI/Abdominal: Reports: No Symptoms : Reports: No Symptoms Musculoskeletal: Reports: No Symptoms Skin: Reports: No Symptoms Neurological: Reports: No Symptoms Psychiatric: Reports: No Symptoms Hematologic/Lymphatic: Reports: No Symptoms Immunologic: Reports: No Symptoms ED EXAM, GENERAL - Physical Exam Exam: See Below Exam Limited By: No Limitations General Appearance: Alert, WD/WN, No Apparent Distress Ears: Normal External Exam Nose: Normal Inspection Throat/Mouth: Normal Inspection Head: Atraumatic, Normocephalic Neck: Normal Inspection Respiratory/Chest: No Respiratory Distress, No Accessory Muscle Use, Chest Non- Tender, Decreased Breath Sounds Cardiovascular: Normal Peripheral Pulses, Regular Rate, Rhythm, No Edema GI/Abdominal: Normal Bowel Sounds Extremities: Normal Inspection, Normal Range of Motion, Non-Tender Neurological: Alert, Oriented, CN II-XII Intact Psychiatric: Normal Affect, Normal Mood Skin Exam: Warm, Dry, Intact Lymphatic: No Adenopathy Course - Vital Signs Last Recorded V/S: Last Vital Signs Temp 37.7 C 04/01/21 16:46 Pulse 65 04/01/21 16:46 Resp 20 04/01/21 16:46 BP 117/69 04/01/21 16:46 Pulse Ox 96 04/01/21 16:46 - Orders/Labs/Meds Orders: chest x ray was unremarkable cbc and d-dimer unremarkable cmp shows potassium elevated at 5.4 COVID was negative influenza was positive Labs: Laboratory Tests 04/01/21 04/01/21 04/01/21 Range/Units 17:30 17:30 17:30 WBC 8.1 (4.0-11.0) 10^3/uL RBC 5.07 (4.50-6.00) x10^6/uL Hgb 15.7 (14.0-18.0) g/dL Hct 48.6 (42.0-52.0) % MCV 95.9 (83.0-97.0) fL MCH 31.0 (27.0-32.0) pg MCHC 32.3 (32.0-36.0) g/dL RDW Coeff of Brett 14.1 (11.0-15.0) % Plt Count 222 (150-400) 10^3/uL Immature Gran % (Auto) 0.2 (0.0-4.9) % Neut % (Auto) 64.7 (41-71) % Lymph % (Auto) 16.8 L (24-44) % [place] % (Auto) 15.4 H (0-10) % Eos % (Auto) 2.3 (0-6) % Baso % (Auto) 0.6 (0-1) % Neut # (Auto) 5.24 (1.80-8.00) x10^3/uL Lymph # (Auto) 1.36 (0.60-5.00) 10^3/uL [place] # (Auto) 1.25 (0.00-1.50) 10^3/uL Eos # (Auto) 0.19 (0.00-1.50) 10^3/uL Baso # (Auto) 0.05 (0.00-0.50) 10^3/uL Immature Gran # (Auto) 0.02 (0.00-0.49) 10^3/uL D-Dimer, Quantitative 0.33 (0.00-0.50) Sodium 138 (136-145) mEq/L Potassium 5.4 H (3.5-5.0) mEq/L Chloride 101 (98-106) mEq/L Carbon Dioxide 27 (21-32) mmol/L BUN 23 H (7-18) mg/dL Creatinine 1.4 H (0.7-1.3) mg/dL Est Cr Clr Drug Dosing 57.21 mL/min Estimated GFR (MDRD) 52 L (>=60) mL/min Glucose 84 (75-99) mg/dL Calcium 9.2 (8.4-10.1) mg/dL Total Bilirubin 0.5 (0.0-1.0) mg/dL AST 34 (15-37) U/L ALT 73 (12-78) U/L Alkaline Phosphatase 110 (46-116) U/L Troponin I High Sens (<=76) pg/mL Total Protein 7.6 (6.4-8.2) g/dL Albumin 3.6 (3.4-5.0) g/dL SARS CoV-2 RNA Rapid STEVE (NEGATIVE) 04/01/21 04/01/21 Range/Units 17:30 17:30 WBC (4.0-11.0) 10^3/uL RBC (4.50-6.00) x10^6/uL Hgb (14.0-18.0) g/dL Hct (42.0-52.0) % MCV (83.0-97.0) fL MCH (27.0-32.0) pg MCHC (32.0-36.0) g/dL RDW Coeff of Brett (11.0-15.0) % Plt Count (150-400) 10^3/uL Immature Gran % (Auto) (0.0-4.9) % Neut % (Auto) (41-71) % Lymph % (Auto) (24-44) % [place] % (Auto) (0-10) % Eos % (Auto) (0-6) % Baso % (Auto) (0-1) % Neut # (Auto) (1.80-8.00) x10^3/uL Lymph # (Auto) (0.60-5.00) 10^3/uL [place] # (Auto) (0.00-1.50) 10^3/uL Eos # (Auto) (0.00-1.50) 10^3/uL Baso # (Auto) (0.00-0.50) 10^3/uL Immature Gran # (Auto) (0.00-0.49) 10^3/uL D-Dimer, Quantitative (0.00-0.50) Sodium (136-145) mEq/L Potassium (3.5-5.0) mEq/L Chloride (98-106) mEq/L Carbon Dioxide (21-32) mmol/L BUN (7-18) mg/dL Creatinine (0.7-1.3) mg/dL Est Cr Clr Drug Dosing mL/min Estimated GFR (MDRD) (>=60) mL/min Glucose (75-99) mg/dL Calcium (8.4-10.1) mg/dL Total Bilirubin (0.0-1.0) mg/dL AST (15-37) U/L ALT (12-78) U/L Alkaline Phosphatase (46-116) U/L Troponin I High Sens 8.4 (<=76) pg/mL Total Protein (6.4-8.2) g/dL Albumin (3.4-5.0) g/dL SARS CoV-2 RNA Rapid STEVE Negative (NEGATIVE) Departure - Departure Time of Disposition: 18:35 Disposition: Home, Self-Care 01 Condition: Good Clinical Impression: Influenza, Hyperkalemia - Discharge Information *PRESCRIPTION DRUG MONITORING PROGRAM REVIEWED*: Not Applicable *COPY OF PRESCRIPTION DRUG MONITORING REPORT IN PATIENT JONO: Not Applicable Instructions: Influenza, Adult, [id number], Hyperkalemia, [id number] Referrals: PCP,None [Primary Care Provider] - Forms: ED Department Discharge Additional Instructions: Hold spironolactone for 3 days, then only 25 mg daily instead of 50 mg daily because potassium was elevated at 5.4. Please notify your primary care physician and clinical psychiatrist. Conservative cares for influenza as discussed and per handout. Follow with primary care as needed and return to ER if worsen Sepsis Event Note (ED) - Evaluation Sepsis Screening Result: No Definite Risk - Assessment/Plan Assessment:: Assessment / Plan: 1) Influenza - conservative cares as discussed. Return if worsen. 2) Hyperkalemia - hold spironolactone for 3 days, then take only 1/2 tab daily (25 mg instead of 50). Follow with primary for re-check of labs and med cahnges per their discretion. All questions and concerns answered.
== END 2021-04-01 18:53 | disposition home or self-care (01) ==
LOC: CC.ED 16:34
DX: J11.1 Influenza due to unidentified influenza virus with other respiratory manifestations (principal); E87.5 Hyperkalemia; I48.91 Unspecified atrial fibrillation; E78.00 Pure hypercholesterolemia, unspecified; I10 Essential (primary) hypertension; N40.0 Benign prostatic hyperplasia without lower urinary tract symptoms; M19.90 Unspecified osteoarthritis, unspecified site; Z88.1 Allergy status to other antibiotic agents; Z88.2 Allergy status to sulfonamides; Z79.01 Long term (current) use of anticoagulants; Z79.899 Other long term (current) drug therapy; Z20.822 Contact with and (suspected) exposure to COVID-19
CPT/HCPCS: 36415; 71046; 80053; 84484; 85025; 85379; 87804; 99283-25; U0002

== ENCOUNTER 2021-05-31 11:23 | Emergency (ER) | payer OTHER, BC ==
[2021-05-31] MEDS ORDERED: Morphine 2 MG/ML SYRINGE IVPUSH ONE ×2 (12:06→14:38)
[2021-05-31] MEDS ORDERED: Morphine 2 MG/ML SYRINGE ONE (15:06)
== END 2021-05-31 15:15 | disposition home or self-care (01) ==
LOC: CC.ED 11:23
DX: M54.6 Pain in thoracic spine (principal); R60.0 Localized edema; E86.0 Dehydration; I48.91 Unspecified atrial fibrillation; E78.00 Pure hypercholesterolemia, unspecified; I10 Essential (primary) hypertension; N40.0 Benign prostatic hyperplasia without lower urinary tract symptoms; M19.90 Unspecified osteoarthritis, unspecified site; Z88.0 Allergy status to penicillin; Z88.1 Allergy status to other antibiotic agents; Z79.01 Long term (current) use of anticoagulants; Z79.899 Other long term (current) drug therapy
CPT/HCPCS: 36415; 71046; 72131; 72192; 80048; 84439; 84443; 85025; 85610; 96374; 96376; 99284; J2270

== ENCOUNTER 2022-06-03 17:54 | Emergency (ER) | payer BC ==
[2022-06-03 18:42] LABS: CHLORIDE,CL 101 mEq/L (98-106); ESTIMATED GFR 52 mL/min (>=60); SODIUM,NA 140 mEq/L (136-145)
[2022-06-03 18:46] VITALS: BP 156/84; PULSE 80
== END 2022-06-03 19:00 | disposition home or self-care (01) ==
LOC: CC.ED 17:54
DX: I48.20 Chronic atrial fibrillation, unspecified (principal); E78.00 Pure hypercholesterolemia, unspecified; I10 Essential (primary) hypertension; N40.0 Benign prostatic hyperplasia without lower urinary tract symptoms; Z88.0 Allergy status to penicillin; Z88.1 Allergy status to other antibiotic agents; Z79.01 Long term (current) use of anticoagulants; Z79.899 Other long term (current) drug therapy
CPT/HCPCS: 36415; 71046; 80053; 81003; 83735; 84484; 85025; 86140; 93005; 93010; 99284; 99285

== ENCOUNTER 2022-10-28 16:38 | Emergency (ER) | payer BC ==
[2022-10-28] MEDS: Acetaminophen/oxyCODONE 325-5 MG Tab PO ONE (17:08)
[2022-10-28] MEDS: Clindamycin HCl 150 MG Cap PO ONE (17:08)
[2022-10-28] MEDS: Take Home: Clindamycin HCl 150 MG Cap, 6 Cap Pack PO ONE (17:11)
[2022-10-28] MEDS: Lidocaine 1% 30 ML SDV INJECT ONE (17:19)
[2022-10-28] MEDS: Diphtheria,Pertussis(Acell),Tetanus Vaccine 0.5 ML Syringe IM ONE (18:36)
[2022-10-28] MEDS: Bacitracin/Neomycin/Polymyxin B Oint 0.9 GM U/D Packet TOP ONE (18:36)
== END 2022-10-28 18:50 | disposition home or self-care (01) ==
LOC: CC.ED 16:38
DX: S81.812A Laceration without foreign body, left lower leg, initial encounter (principal); Z88.0 Allergy status to penicillin; Z88.8 Allergy status to other drugs, medicaments and biological substances; I48.91 Unspecified atrial fibrillation; E78.00 Pure hypercholesterolemia, unspecified; I10 Essential (primary) hypertension; Z79.01 Long term (current) use of anticoagulants; Z23 Encounter for immunization; Z79.899 Other long term (current) drug therapy; W22.8XXA Striking against or struck by other objects, initial encounter
CPT/HCPCS: 12005; 12035; 73590-LT; 90471; 90715; 99283; 99283-25; A9270-GY; J3490

== ENCOUNTER 2023-03-04 04:56 | Emergency (ER) | payer BC ==
[2023-03-04 05:15] LABS: APPEARANCE,URINE CLEAR (CLEAR); BILIRUBIN,URINE NEGATIVE (NEGATIVE); COLOR,URINE DARK YELLOW (YELLOW); GLUCOSE,URINE NEGATIVE (NEGATIVE); KETONES,URINE NEGATIVE (NEGATIVE); LEUKOCYTE ESTERASE,URINE NEGATIVE (NEGATIVE); NITRITE,URINE NEGATIVE (NEGATIVE); OCCULT BLOOD,URINE LARGE (NEGATIVE); PROTEIN,URINE 100 mg/dL (NEGATIVE); UROBILINOGEN,URINE 0.2 EU/dL (0.2-1.0)
[2023-03-04] MEDS ORDERED: Sodium Chloride 0.9% 10 ML Syringe FLUSH PRN (05:15)
[2023-03-04 05:21] LABS: BACTERIA,URINE NOT SEEN /HPF (NOT SEEN); EPITHELIAL CELLS,URINE NOT SEEN /HPF (NOT SEEN); MUCUS,URINE OCCASIONAL /HPF (NOT SEEN); RBC,URINE 40-50 /HPF (0-5)
[2023-03-04 05:31] LABS: BASOPHILS ABSOLUTE AUTO 0.04 10^3/uL (0.00-0.50); BASOPHILS PERCENT AUTO 0.4 % (0-1); EOSINOPHILS ABSOLUTE AUTO 0.16 10^3/uL (0.00-1.50); EOSINOPHILS PERCENT AUTO 1.8 % (0-6); HEMATOCRIT 41.1 % (42.0-52.0); HEMOGLOBIN 13.1 g/dL (14.0-18.0); IMMATURE GRAN ABSOLUTE AUTO 0.01 10^3/uL (0.00-0.49); IMMATURE GRAN PERCENT AUTO 0.1 % (0.0-4.9); LYMPHOCYTES PERCENT AUTO 16.7 % (24-44); MEAN CORPUSCULAR HEMOGLOBIN 28.2 pg (27.0-32.0); MEAN CORPUSCULAR HGB CONC 31.9 g/dL (32.0-36.0); MEAN CORPUSCULAR VOLUME 88.6 fL (83.0-97.0); MONOCYTES ABSOLUTE AUTO 0.94 10^3/uL (0.00-1.50); MONOCYTES PERCENT AUTO 10.5 % (0-10); NEUTROPHILS ABSOLUTE AUTO 6.31 x10^3/uL (1.80-8.00); NEUTROPHILS PERCENT AUTO 70.5 % (41-71); PLATELET COUNT,PLT 243 10^3/uL (150-400); RED BLOOD CELL COUNT 4.64 x10^6/uL (4.50-6.00)
[2023-03-04 05:50] LABS: INR 1.13 (0.92-1.18); LACTIC ACID 0.7 mmol/L (0.4-2.0); PROTHROMBIN TIME 11.6 SEC (9.3-11.3); PTT,PARTIAL THROMBOPLSTIN TIME 29.9 SEC (20.0-30.0)
[2023-03-04] MEDS ORDERED: HYDROmorphone 1 MG/ML Syringe IVPUSH ONE (05:51)
[2023-03-04 06:01] LABS: ALANINE AMINOTRANSFERASE,ALT 31 U/L (12-78); ALBUMIN 3.4 g/dL (3.4-5.0); ALKALINE PHOSPHATASE 133 U/L (46-116); AMYLASE 52 U/L (25-115); ASPARTATE AMNIOTRANSFERASE,AST 20 U/L (15-37); BILIRUBIN TOTAL 0.5 mg/dL (0.0-1.0); BLOOD UREA NITROGEN,BUN 22 mg/dL (7-18); C-REACTIVE PROTEIN 1.15 mg/dL (<=0.30); CALCIUM 9.1 mg/dL (8.4-10.1); CARBON DIOXIDE,CO2 23 mmol/L (21-32); CHLORIDE,CL 99 mEq/L (98-106); CREATININE 1.6 mg/dL (0.7-1.3); GLUCOSE RANDOM 123 mg/dL (75-99); LIPASE 46 U/L (16-77); POTASSIUM,K 3.8 mEq/L (3.5-5.0); PROTEIN TOTAL,TP 7.3 g/dL (6.4-8.2); SODIUM,NA 132 mEq/L (136-145)
[2023-03-04 06:02] LABS: ESTIMATED GFR 48 mL/min (>=60)
[2023-03-04] MEDS ORDERED: Sodium Chloride 0.9% 1,000 ML IV ONE (06:07)
[2023-03-04] MEDS ORDERED: Ciprofloxacin 500 MG Tab PO ONE (07:03)
[2023-03-04] MEDS ORDERED: Tamsulosin 0.4 MG Cap.ER PO ONE (07:04)
== END 2023-03-04 07:39 | disposition home or self-care (01) ==
LOC: CC.ED 04:56
DX: N28.82 Megaloureter (principal); N12 Tubulo-interstitial nephritis, not specified as acute or chronic; I10 Essential (primary) hypertension; E78.00 Pure hypercholesterolemia, unspecified; I48.91 Unspecified atrial fibrillation; Z79.899 Other long term (current) drug therapy; Z88.0 Allergy status to penicillin; Z88.1 Allergy status to other antibiotic agents
CPT/HCPCS: 36415; 74176; 80053; 81001; 82150; 83605; 83690; 85025; 85610; 85730; 86140; 96361; 96374; 99284; 99284-25; A9270-GY; J1170; J7030

== ENCOUNTER 2025-01-15 21:03 | Emergency (ER) | payer BC ==
[2025-01-15 21:25] LABS: BASOPHILS ABSOLUTE AUTO 0.10 10^3/uL (0.00-0.50); BASOPHILS PERCENT AUTO 1.0 % (0-1); EOSINOPHILS ABSOLUTE AUTO 0.48 10^3/uL (0.00-1.50); EOSINOPHILS PERCENT AUTO 4.8 % (0-6); IMMATURE GRAN ABSOLUTE AUTO 0.01 10^3/uL (0.00-0.49); IMMATURE GRAN PERCENT AUTO 0.1 % (0.0-4.9); LYMPHOCYTES ABSOLUTE AUTO 3.28 10^3/uL (0.60-5.00); LYMPHOCYTES PERCENT AUTO 32.9 % (24-44); MONOCYTES ABSOLUTE AUTO 0.83 10^3/uL (0.00-1.50); MONOCYTES PERCENT AUTO 8.3 % (0-10); NEUTROPHILS ABSOLUTE AUTO 5.27 x10^3/uL (1.80-8.00); NEUTROPHILS PERCENT AUTO 52.9 % (41-71); PLATELET COUNT,PLT 276 10^3/uL (150-400); RED BLOOD CELL COUNT 5.22 x10^6/uL (4.50-6.00); WHITE BLOOD CELL COUNT,WBC 10.0 10^3/uL (4.0-11.0)
[2025-01-15 21:40] LABS: ALANINE AMINOTRANSFERASE,ALT 39.0 U/L (12-78); ASPARTATE AMNIOTRANSFERASE,AST 28.0 U/L (15-37); BILIRUBIN TOTAL 0.5 mg/dL (0.0-1.0); BLOOD UREA NITROGEN,BUN 22.0 mg/dL (7-18); CARBON DIOXIDE,CO2 30.0 mmol/L (21-32); CHLORIDE,CL 100.0 mEq/L (98-106); CREATININE 1.1 mg/dL (0.7-1.3); EST CRCL DRUG DOSING (CG) 75.66 mL/min; GLUCOSE RANDOM 137.0 mg/dL (75-99); POTASSIUM,K 3.9 mEq/L (3.5-5.0); PROTEIN TOTAL,TP 7.3 g/dL (6.4-8.2); SODIUM,NA 140.0 mEq/L (136-145)
[2025-01-15 21:41] LABS: ESTIMATED GFR 75.0 mL/min (>=60)
[2025-01-15 21:46] LABS: INR 1.09 (0.92-1.18)
[2025-01-15] MEDS: Take Home: LORazepam 0.5 MG Tab, 2 Tab Pack PO ONE (22:04)
[2025-01-15] MEDS: Metoprolol Succinate 100 MG Tab.ER PO ONE (22:10)
== END 2025-01-15 22:20 | disposition home or self-care (01) ==
LOC: CC.ED 21:03
DX: R51.9 Headache, unspecified (principal); I10 Essential (primary) hypertension; E78.00 Pure hypercholesterolemia, unspecified; I48.91 Unspecified atrial fibrillation; Z79.899 Other long term (current) drug therapy; Z79.01 Long term (current) use of anticoagulants; Z88.0 Allergy status to penicillin; Z88.1 Allergy status to other antibiotic agents
CPT/HCPCS: 36415; 80053; 84484; 85025; 85610; 93010; 99284; A9270